=== PATIENT | male | born 1950 | race Caucasian/White ===

== ENCOUNTER → 2017-07-19 | Outpatient (CLI) | payer BC | LOC: RADNMMAIN 10:15 | PROVIDERS: ATTEND Internal Medicine | DX: Z53.9 Procedure and treatment not carried out, unspecified reason (principal) ==

== ENCOUNTER → 2017-07-29 | Outpatient (CLI) | payer BC ==
--- NOTE | 2017-07-29 10:50 | NM ---
EXAMINATION TYPE: NM bone 3 phase DATE OF EXAM: 07/29/2017 COMPARISON: NONE HISTORY: Right foot pain Triple phase bone scintigraphy was performed following the injection of25.8 mCi Tc 99m MDP. Immediat e images and 3 hours post injection images acquired. FINDINGS: There is increased flow to the right distal foot near the region of the second or third metatarsal. There is increased soft tissue uptake in this region soft tissue uptake noted bilaterally. Abnormal uptake involving the first MTP joint bilaterally noted likely post arthritic. IMPRESSION: Increased perfusion and soft tissue uptake in the region of the second and third metatarsal. No abnor mal uptake on delayed imaging. This suggest a postinflammatory or postinfectious etiology. If there i s concern for occult fracture or bone contusion correlation with MRI could BE obtained.
== END | disposition home or self-care (01) ==
LOC: RADNMMAIN 07:21
PROVIDERS: ATTEND Internal Medicine
DX: R93.6 Abnormal findings on diagnostic imaging of limbs (principal); M79.671 Pain in right foot
CPT/HCPCS: 78315; A9503

== ENCOUNTER 2018-06-10 16:23 | Emergency (ER) | payer MEDICARE, OTHER ==
[2018-06-10 16:45] VITALS: BP 127/78; PULSE 60; RESP 18; TEMP 97.2
--- NOTE | 2018-06-10 17:19 | ED ---
Head Injury HPI - General Chief complaint: Head Injury Stated complaint: Head Lac Time Seen by Provider: 06/10/18 16:33 Source: patient Mode of arrival: ambulatory Limitations: no limitations - History of Present Illness Initial comments: 67-year-old male with past medical history of hypertension presents today for chief complaint of scalp laceration. Patient states that 8 PM last night he was in his attic when he hit his head on a board, he is unsure if there was a nail. He then noticed he was bleeding from the posterior aspect of the scalp, his said there was a laceration. He did not want to present to the emergency department. His made him present to emergency department this evening. Patient denies visual changes, diplopia, speech changes, ataxia, nausea, vomiting, headache. He states he does not have any pain unless the area is palpated. Denies large hematoma. Pt states allergic to tetanus vaccination. Upon arrival pt appears well. VS within acceptable limits. - Related Data Allergies/Adverse reactions: Allergies Allergy/AdvReac Type Severity Reaction Status Date / Time Tetanus Vaccines and Toxoid Allergy Unknown Verified 06/10/18 16:45 Review of Systems ROS Statement: Those systems with pertinent positive or pertinent negative responses have been documented in the HPI. ROS Other: All systems not noted in ROS Statement are negative. Past Medical History Past Medical History: Hyperlipidemia, Hypertension History of Any Multi-Drug Resistant Organisms: None Reported Past Surgical History: No Surgical Hx Reported Past Psychological History: No Psychological Hx Reported Smoking Status: Never smoker Past Alcohol Use History: Occasional Past Drug Use History: None Reported General Exam - General Exam Comments Initial Comments: General: The patient is awake and alert, in no distress, and does not appear acutely ill. Eye: +3 mm pupils are equal, round and reactive to light, extra-ocular movements are intact. No nystagmus. There is normal conjunctiva bilaterally. No signs of icterus. Ears, nose, mouth and throat: There are moist mucous membranes and no oral lesions. Neck: The neck is supple, there is no tenderness or JVD. Cardiovascular: There is a regular rate and rhythm. No murmur, rub or gallop is appreciated. Respiratory: Lungs are clear to auscultation, respirations are non-labored, breath sounds are equal. No wheezes, stridor, rales, or rhonchi. Musculoskeletal: Normal ROM, no tenderness. Strength 5/5. Sensation intact. Pulses equal bilaterally 2+. Neurological: A&O x 3. CN II-XII intact, There are no obvious motor or sensory deficits. Coordination appears grossly intact. Speech is normal. Normal gait Skin: Skin is warm and dry and no rashes. superficial laceration scalp occipital aspect, no surrounding hematoma/comtusion. first 1-2 cm deeper however still superficial. remaining 1-2 cm of laceration very superficial. No exposure of underlying structure no surrounding erythema Psychiatric: Cooperative, appropriate mood & affect, normal judgment. Limitations: no limitations Course Vital Signs 06/10/18 16:39 Temperature 97.2 F L Pulse Rate 60 Respiratory 18 Rate Blood Pressure 127/78 O2 Sat by Pulse 97 Oximetry Procedures - Laceration Laceration #1 Consent Obtained: verbal consent Time Out Performed: Yes Indication: laceration Site: scalp Size (cm): 4 Description: linear Depth: simple, single layer Sedation/Analgesia: none Pre-repair: wound explored, irrigated extensively, deep structures intact Additional Comments: 2 liliane placed. Medical Decision Making - Medical Decision Making 2 liliane in deeper aspect of laceration, after cleansed, irrigated and wound edges scrubbed/revitalized. Overall laceration superficial. Pt educated on signs of infection. No neurological complaints or focal deficits on exam. Pt well appearing. Allergic to tetanus vaccination. Pt discharged after discussing case with attending provider. Pt agreeable with plan and discharge, return parameters were discussed in detail. Disposition Clinical Impression: Scalp laceration Disposition: HOME SELF-CARE Condition: Good Instructions: Staple Care (ED) Additional Instructions: Please use topical medication as discussed. Please follow-up with family doctor in the next 2 days. Please return for staple removal in 5-7 days. Please return to emergency room if the symptoms increase or worsen or for any other concerns. Is patient prescribed a controlled substance at d/c from ED?: No Referrals: Robert Rascon MD [Primary Care Provider] - 1-2 days Time of Disposition: 17:18
== END 2018-06-10 17:22 | disposition home or self-care (01) ==
LOC: EC 16:23
DX: S01.01XA Laceration without foreign body of scalp, initial encounter (principal); Z88.7 Allergy status to serum and vaccine; W18.09XA Striking against other object with subsequent fall, initial encounter
CPT/HCPCS: 12002; 99283

== ENCOUNTER → 2020-11-29 | Outpatient (CLI) | payer MEDICARE | END | disposition home or self-care (01) | DX: R97.20 Elevated prostate specific antigen [PSA] (principal) ==

== ENCOUNTER → 2020-12-08 | Outpatient (CLI) | payer MEDICARE ==
[2020-12-08 19:36] LABS: Chol/HDL Ratio 2.76; LDL Cholesterol,Calculated 61.6 mg/dL (0.0-131.0); VLDL Calculation 17.4 mg/dL (5.00-40.00)
== END | disposition home or self-care (01) ==
LOC: LABWHC1 12:24
PROVIDERS: ATTEND Internal Medicine Cardiovascular Disease
DX: E78.2 Mixed hyperlipidemia (principal)
CPT/HCPCS: 36415; 80061; 84450; 84460

== ENCOUNTER → 2024-03-22 | Outpatient (CLI) | payer MEDICARE | END | disposition home or self-care (01) | LOC: LABWHC1 13:12 | PROVIDERS: ATTEND Student in an Organized Health Care Education/Training Program | DX: R97.20 Elevated prostate specific antigen [PSA] (principal) | CPT/HCPCS: 36415; 84153 ==